=== PATIENT | male | born 1970 | race Caucasian/White ===

== ENCOUNTER 2020-03-27 20:47 | Outpatient (CLI) | payer OTHER | END 2020-03-27 20:48 | disposition home or self-care (01) | LOC: COV 20:47 | PROVIDERS: ATTEND Family Medicine | DX: R50.9 Fever, unspecified (principal); R53.83 Other fatigue; R19.7 Diarrhea, unspecified | CPT/HCPCS: 81599 ==

== ENCOUNTER 2020-08-06 19:30 | Outpatient (CLI) | payer OTHER | END 2020-08-06 23:59 | disposition home or self-care (01) | LOC: SC 19:30 | PROVIDERS: ATTEND Nurse Practitioner Family | DX: G47.33 Obstructive sleep apnea (adult) (pediatric) (principal) | CPT/HCPCS: 95806 ==

== ENCOUNTER 2020-08-23 08:18 | Outpatient (CLI) | payer OTHER ==
--- NOTE | 2020-08-23 08:38 | SLEEP CARE CONSULTATION ---
Information from patient questionnaire entered by Glory Howard. I have reviewed and concur with the information entered by Glory Howard. This document represents the service I personally performed and the decisions made by , Sara Escobar ARNP. History of Present Illness Service Date and Time: 08/23/2020817 Initial [place] Sleepiness Scale score: 19 (in 2019) Current [place] Sleepiness Scale score: 16 Additional HPI information: KATE SANDHU returns for follow up and results of the recently performed home sleep study. I explained the pathophysiology behind obstructive sleep apnea. We then spent quite a bit of time discussing different treatment options. For mild obstructive sleep apnea, surgery and oral appliance are alternatives to nasal CPAP therapy but in moderate or severe cases, nasal CPAP is the most effective and reliable treatment. After some discussion, the patient opted to go with the nasal CPAP therapy. Nasal autoCPAP set at 4-15 cmH20 will be ordered with rationale explained. A manual titration study will be ordered if unable to find optimal pressure with office adjustments. I explained how CPAP machine works with sample devices RespirAre You a Human Dreamstation and Adviqo [id number] and what to expect when using the machine. Using CPAP every night in order to get used to it was emphasized. Patient advised to put CPAP mask on before getting into bed so as not to fall asleep without CPAP. To assist acclimation to CPAP use, it could also be used for a short time during day while reading or watching TV. The patient was instructed to call the CPAP supplier to discuss any mechanical problem that may occur. If the mask given is uncomfortable or is difficult to keep on through the night even with adjustment, contact the CPAP supplier as many will replace with another mask style if notif ied before 30 days. If snoring or perceives is not getting enough air or too much air from the machine, notify this office. AASM patient education PAP tips reviewed and given to patient. Patient counseled not drink alcohol less than 4 hours before bedtime as it can increase snoring and apnea. Patient was cautioned about risks of drowsy driving until sleepiness symptoms resolve. Sleep Study - Results Type of Sleep Study: Home sleep study Prior sleep studies: No Polysomnography/Home Sleep Study results: SLEEP TIME AND EFFICIENCY: The sleep study recording began at 10:11:55 PM and ended at 08:41:01 AM. Total recording time was 629.1 minutes. The total sleep time was 586.0 minutes. The sleep efficiency was 93.1 percent. The patient spent 231.8 minutes supine, and spent 354.2 minutes non-supine. The patients own estimate of sleep time was 10.50 hours. RESPIRATORY DATA: The AHI in this report is indexed to sleep time based on actigraphy. The AASM defines this as MARBIN. The AHI on this type 3 Home Sleep Study may understate the AHI determined on a type 1 or 2 study, since EEG is not monitored resulting in the inability to score non-desaturating hypopneas. Based on 4% Calculation: The AHI 4% calculation of 24.7 per hour of recording time was based on a total of 194 scored apneas and 47 scored hypopneas with 4% desaturations. Supine AHI4%: 41.7 per hour. Non-supine AHI4%: 13.6 per hour. Oxygen Summary: Patient's baseline O2 saturation was 94.6 %. The patient spent 46.0 minutes at an oxygen saturation less than 90%, and 1.7 minutes less than 85%. The desaturation index was 23.4 events per hour sleep time. The lowest saturation was 78.3 %. SNORING: The percent of the study time spent snoring was 0.0 %. The Snoring Count was 1 . The Snoring Index was 0.1 . PULSE RATE REVIEW: The mean heart rate was 63 beats per minute. The rate ranged from a low of 39 to a high of 83 beats per minute. DIAGNOSIS CODE: Moderate obstructive sleep apnea G47.33 Moderate desaturations were noted. The respiratory events occurred more frequently during supine sleep. Allergies and Home Medications Drug allergies reviewed: Yes (NKDA) Home medication list reviewed: Yes (no changes) Review of Systems Review of systems same as previous: Yes (no changes) Physical Exam Heart Rate: 65 O2 Saturation: 93 Height: 5 ft 9 in Weight: 204 lb Body Mass Index: 30.1 BMI Classification: Obese Impression and Plan 1. Obstructive Sleep Apnea-Hypopnea Syndrome, moderate, with lowest oxygen saturation of 78.3%. Obviously this is the cause of the patients symptoms of unrefreshed sleep, and excessive daytime sleepiness. Positive pressure therapy could benefit his anxiety and depression. As mentioned above, the patient will be started on nasal autoCPAP therapy with pressure set at 4-15 cmH2O. A manual titration study will be completed if unable to find optimal treatment pressure with office adjustments. Compliance guidelines also reviewed. A copy of compliance guidelines will be given for reference at check out. Because the apnea is more severe supine, I instructed to avoid sleeping supine using pillow positioning until able to start CPAP use. * Nasal auto CPAP therapy, pressure at 4-15 cm H2O. * Attempt to lose weight. * Avoid alcohol consumption near bedtime. * Avoid supine sleep until using CPAP. * The patient is again cautioned about driving until sleepiness completely resolves. * Return one month after CPAP obtained. I will assess response to therapy and compliance at that time. Counseling Topics: Weight loss health impact Visit Type: In Office Time Spent with Patient (minutes): 17 Provider Statement: I spent 100% of the Face to Face Visit with the patient with greater than 50% spent counseling the patient and coordination of care.
== END 2020-08-23 08:19 | disposition home or self-care (01) ==
LOC: SC 08:18
PROVIDERS: ATTEND Nurse Practitioner Family
DX: G47.33 Obstructive sleep apnea (adult) (pediatric) (principal); E66.9 Obesity, unspecified; Z68.30 Body mass index [BMI] 30.0-30.9, adult
CPT/HCPCS: 99212; 99213

== ENCOUNTER 2020-10-25 15:09 | Outpatient (CLI) | payer OTHER ==
--- NOTE | 2020-10-25 14:56 | SLEEP CARE CONSULTATION ---
Information from patient questionnaire entered by Rohit Krishnamurthy. I have reviewed and concur with the information entered by Rohit Krishnamurthy. This document represents the service I personally performed and the decisions made by , Sara Escobar ARNP. History of Present Illness Service Date and Time: 10/25/2020 1440 Previous diagnosis: Moderate, Obstructive Sleep Apnea-Hypopnea Syndrome AHI: 24.7 Reason for follow up: first compliance Equipment type: CPAP Equipment obtained from: Sara (got initial supplies) Mask style: Nasal Mask brand: Resmed Backup mask available: No (keep mask when replaced) Last cushion change: 6 weeks Prior sleep studies: No Year and Where: 2019 [facility] Type of Sleep Study: Home sleep study HPI additional information: KATE SANDHU was diagnosed to have moderate, AHI 24.7, obstructive sleep apnea- hypopnea syndrome and returns via Telehealth visit today for CPAP therapy first compliance follow-up. Sleep Study - Results Type of Sleep Study: Home sleep study Prior sleep studies: No CPAP Compliance Data - Data Reviewed with Patient Average duration of nightly device use: 8 h 6 min Compliance rate %: 93 Current pressure setting (cmH2O): 4-15 (median 8.1, 95% 11.1 and max 12.7) Average residual AHI: 4.3 Subjective Patient concerns: reports: mask discomfort (some moving around), nasal congestion. denies: aerophagia, air blowing in eyes, mask leak noise, condensation in mask/hose, dry mouth, nose, throat, epistaxis, other Observed to snore while using device: No (only a few times) Current pressure setting perceived as: comfortable On therapy, patient: reports: sleeping better, awakening more refreshed, being more awake and alert during the day, more rested overall. denies: drowsiness while driving Initial [place] Sleepiness Scale score: 19 (in 2020) Current [place] Sleepiness Scale score: 8 Allergies and Home Medications Drug allergies reviewed: Yes (NKDA) Home medication list reviewed: Yes (no changes) Review of Systems Review of systems same as previous: Yes (no changes) Physical Exam Vital signs obtained and entered by: Telehealth visit due to Covid pandemic Height: 5 ft 9 in Weight change since last visit: lost 5 pounds Impression and Plan 1. Obstructive Sleep Apnea-Hypopnea Syndrome, moderate, with good treatment compliance and fair apnea control. On CPAP therapy, the patient has better sleep quality and is more rested overall. He thinks the nasal cushion is okay but move around easily when he changes position. He would like to try the nasal pillows mask to see if he has less dislodging of the mask. I will write a script for him to try this mask. I will adjust his pressure to reflect the pressures he has been using to 9-13 cm H2O. He will follow up in 1-2 months. Patient's apnea se verity and rationale for treatment to reduce apnea, improve sleep quality and reduce cardiovascular and cerebrovascular events was reviewed. I also reviewed the benefit of consistent device use of CPAP for his depression/anxiety. * Change autoCPAP pressure to 9-13 cmH2O * Notify me if snoring with mask or feeling that the pressure is too much or too little * Attempt to lose weight * Call this office if any problems using CPAP * Return for follow up in 1-2 months, or sooner if concerns arise Counseling Topics: Spare mask, Weight loss health impact Visit Type: Telehealth Video Video Type: Jesenia Patient Location: Home Location of Provider: Office Patient agrees and consents to this telehealth visit type: Yes Patient agrees to have their insurance billed: Yes Time Spent with Patient (minutes): 16 Provider Statement: I spent 100% of the Telehealth Video Call with the patient with greater than 50% spent counseling the patient and coordination of care.
== END 2020-10-25 15:10 | disposition home or self-care (01) ==
LOC: SC 15:09
PROVIDERS: ATTEND Nurse Practitioner Family
DX: G47.33 Obstructive sleep apnea (adult) (pediatric) (principal)

== ENCOUNTER 2020-11-16 20:05 | Outpatient (CLI) | payer BC ==
--- OUTSIDE RECORDS SUMMARY | 2020-11-22 01:22 | EXTERNAL MEDICAL SUMMARY RPT | Continuity of Care Document ---
:1970 Demographics Phone Unavailable Preferred Language Dominican Marital Status Unknown Latter-Day Affiliation Unknown Race Unknown Ethnic Group Unknown Author Organization Welcome Address [address] [place] [address] Phone Care Team Providers Name Role Phone Scheidt Unavailable Unavailable DO Unavailable Unavailable Scooter Unavailable Unavailable Problems date description facility 2014-07-15 07:45 PAIN IN LIMB [facility] 2014-07-15 07:45 SWELLING OF LIMB [facility] 2015-01-04 10:00 ACUTE BRONCHITIS [facility] 2015-01-04 10:33 FEVER, UNSPECIFIED [facility] 2015-01-04 10:33 COUGH [facility] 2015-09-25 16:18 CHONDROMALACIA PATELLAE, RIGHT [facility] 2015-09-25 16:18 EFFUSION, RIGHT KNEE [facility] 2015-09-25 16:18 SPRAIN OF UNSPECIFIED SITE OF [facility] RIGHT KNEE, INITIAL ENCOUNTER 2020-07-07 09:03 OBESITY, UNSPECIFIED [facility] 2020-07-07 09:03 ATTENTION-DEFICIT HYPERACTIVITY [facility] DISORDER, UNSPECIFIED TYPE 2020-07-07 09:03 HYPERSOMNIA, UNSPECIFIED [facility] 2020-07-07 09:03 OTHER SLEEP DISORDERS [facility] 2020-07-07 09:03 APNEA, NOT ELSEWHERE CLASSIFIED [facility] 2020-07-07 09:03 SNORING [facility] 2020-07-07 09:03 BODY MASS INDEX (BMI) [facility] 30.0-30.9, ADULT 2020-08-06 19:30 OBSTRUCTIVE SLEEP APNEA (ADULT) [facility] (PEDIATRIC) 2020-08-23 08:18 OBESITY, UNSPECIFIED [facility] 2020-08-23 08:18 OBSTRUCTIVE SLEEP APNEA (ADULT) [facility] (PEDIATRIC) 2020-08-23 08:18 BODY MASS INDEX [BMI]30.0-30.9, [facility] ADULT 2020-09-27 00:00:00 Obstructive sleep apnea (adult) [facility] (pediatric) [facility] 2020-09-27 00:00:00 Obstructive sleep apnea [facility] syndrome [facility] Allergies date description facility ADHESIVE \T\ TAPE [facility] ERYTHROMYCIN [facility] HYDROCODONE [facility] MORPHINE [facility] PSEUDOEPHEDRINE [facility] [id number] [facility] PENICILLINS [facility] GLUTEN [facility] ERYTHROMYCIN [facility] LATEX [facility] LOSARTAN [facility] PENICILLINS [facility] NO KNOWN ALLERGIES [facility] LATEX [facility] SWEET POTATO [facility] WHEAT [facility] ASPIRIN [facility] No Known Drug Allergies [facility] NO ALLERGY INFORMATION AVAILABLE [facility] LACTOSE [facility] WHEAT [facility] TRAMADOL [facility] Results test status date ordered by attending specimen carlos e null F 2020-11-16 LANGNetta BENITES 11-16 16:41:00 12:40:00 facility observation status value reference units lab abnor mal line notes range code [facility] F NEGATIVE unknown See [facility] s eparate report - Report scanned to Patient' s EMR. Testing performe d at [facility] test status date ordered by attending specimen carlos e T unknown 2020-11-16 unknown unknown unknown 00:00:00 COVID-19_REFEREN unknown 2020-11-16 unknown unknown unkno wn CE_TEST 00:00:00 _2019NCoV_COVID- unknown 2020-11-16 unknown unknown unkno wn 19_Lab_Test_Resul 00:00:00 t_Text_ facility observation status value reference units lab abnor mal line range code notes [facility] T unknown NEGATIVE unknown COVI unkn own unknown Primary Care D-19 [facility] COVID-19_REF unknown NEGATIVE unknown COVI unknown unknown Primary Care ERENCE_TEST D19.R [facility] EF [facility] _2019NCoV_CO unknown NEGATIVE unknown _665 unknown unknown Primary Care VID-19_Lab_Te [address] [facility] st_Result_Tex t_ Social History date description facility [id number]
== END 2020-11-16 20:06 | disposition home or self-care (01) ==
LOC: COV 20:05
PROVIDERS: ATTEND Family Medicine
DX: R50.9 Fever, unspecified (principal); M79.10 Myalgia, unspecified site; R53.83 Other fatigue; R19.7 Diarrhea, unspecified; Z20.822 Contact with and (suspected) exposure to COVID-19

== ENCOUNTER 2022-07-09 17:07 | Outpatient (CLI) | payer BC | END 2022-07-09 23:59 | disposition home or self-care (01) | LOC: LAB.N 17:07 | PROVIDERS: ATTEND Nurse Practitioner Family | DX: F90.9 Attention-deficit hyperactivity disorder, unspecified type (principal); Z79.899 Other long term (current) drug therapy | CPT/HCPCS: 80324; 81599 ==

== ENCOUNTER 2022-11-04 12:07 | Outpatient (CLI) | payer BC ==
[2022-11-04 12:45] LABS: ALBUMIN 4.1 g/dL (3.2-5.5); ALBUMIN/GLOBULIN RATIO 1.4 (1.0-2.2); ALKALINE PHOSPHATASE 70 IU/L (42-121); ALT ALANINE AMINOTRANSFERASE 24 IU/L (10-60); AST ASPARTATE AMINOTRANSFERASE 23 IU/L (10-42); BUN - BLOOD UREA NITROGEN 10 mg/dL (6-20); CALCIUM 8.7 mg/dL (8.5-10.3); CARBON DIOXIDE - CO2 30 mmol/L (21-32); CHLORIDE 99 mmol/L (101-111); CHOL/HDL RATIO 4.7 (<5.0); CHOLESTEROL 208 mg/dL; GFR - MDRD 78 (>89); GLUCOSE 115 mg/dL (70-100); HDL CHOLESTEROL 44 mg/dL; LDL CHOLESTEROL,CALCULATED 143 mg/dL; LDL/HDL RATIO 3.3 (<3.6); POTASSIUM 4.1 mmol/L (3.5-5.0); SODIUM 136 mmol/L (135-145); TOTAL PROTEIN 7.1 g/dL (6.7-8.2); TRIGLYCERIDES 107 mg/dL; VLDL CHOLESTEROL 21 mg/dL
== END 2022-11-04 12:08 | disposition home or self-care (01) ==
LOC: LAB 12:07
PROVIDERS: ATTEND Nurse Practitioner Family
DX: E78.5 Hyperlipidemia, unspecified (principal); F90.9 Attention-deficit hyperactivity disorder, unspecified type; Z79.899 Other long term (current) drug therapy
CPT/HCPCS: 36415; 80053; 80061; 83721

== ENCOUNTER 2023-01-09 15:31 | Outpatient (CLI) | payer OTHER ==
--- NOTE | 2023-01-09 16:55 | MRI Report ---
PROCEDURE: ANKLE WO - LT INDICATIONS: ATFL TEAR LT, OCD LT TECHNIQUE: Noncontrast sagittal T1 spin echo and T2 fast spin echo with fat saturation, axial proton density fas t spin echo and T2 fast spin echo with fat saturation, coronal T1 spin echo and T2 fast spin echo wit h fat saturation through the ankle/hindfoot. COMPARISON: Ankle radiograph dated 03/20/2017. FINDINGS: Image quality: Excellent. Bones and joints: No bone marrow contusions or fractures. No hindfoot coalitions. No osteochondral injuries of the talar dome. Small to moderate amount of tibiotalar joint effusion is seen, no gross loose bodies. Medial structures: The posterior tibialis tendon is thickened at the level of distal talus and johanna avicular joint. The flexor digitorum longus, and flexor hallucis longus tendons are intact. The post erior tibial neurovascular bundle appears normal within the tarsal tunnel, without extrinsic mass eff ect. The deep layer (anterior and posterior tibiotalar ligaments) and superficial layer (tibionavicu lar, tibiospring, and tibiocalcaneal ligaments) of the deltoid ligament appear normal. The spring li gament components (superomedial calcaneonavicular, medioplantar oblique calcaneonavicular, and infero plantar longitudinal ligaments) are intact. Lateral structures: There is suggestion of moderate to high-grade partial-thickness tear involving an terior talofibular ligament near its tibial insertion. The calcaneofibular, and posterior talofibular ligaments appear are mildly thickened with low-grade intrasubstance T2 hyperintense signal. More sup eriorly, the anterior and posterior tibiofibular ligaments appear normal, as is the intermalleolar li gament. The tibiofibular syndesmosis is normal in width at 2 mm or less. The peroneus brevis tendon is intact. Thickened peroneus longus tendon is seen at the level of mid to distal calcaneus extending to calcaneocuboid joint. Adjacent bony peroneal tubercle and retrotrochlear prominence are normal in size. The sinus tarsi demonstrates normal fatty signal, without edema, fibrosis, or cyst formation. Visualized sinus tarsi components (cervical ligament, interosseous talocalcaneal ligament, roots of the inferior extensor retinaculum) appear normal. Anterior structures: The tibialis anterior, extensor hallucis longus, and extensor digitorum longus tendons appear intact. Dorsal talonavicular ligament appears thickened. Posterior and plantar structures: Achilles tendon is intact. Medial and lateral bands of the planta r fascia are of normal thickness. No abductor digiti quinti muscle atrophy to suggest Sal neuropa thy. IMPRESSION: 1. No marrow edema. No fracture or dislocation. No evidence of osteochondral injuries of talar dome. Small to moderate tibiotalar joint effusion, no gross loose bodies. 2. Moderate to high-grade partial thickness tear involving medial portion of anterior talofibular lig ament near its tibial insertion. Low-grade sprain/intrasubstance partial thickness tear involving pos terior talofibular ligament and calcaneofibular ligament. 3. Tendinosis involving posterior tibialis tendon at the level of talonavicular joint. 4. Tendinosis also seen involving peroneus longus tendon as above. 5. Low-grade sprain involving dorsal talonavicular ligament. Reviewed by: Artemio Arrieta MD on 01/09/2023 4:54 PM PST Approved by: Artemio Arrieta MD on 01/09/2023 4:54 PM PST Station ID: [id number]
== END 2023-01-09 15:32 | disposition home or self-care (01) ==
LOC: DI 15:31
PROVIDERS: ATTEND Podiatrist Foot & Ankle Surgery
DX: S93.492A Sprain of other ligament of left ankle, initial encounter (principal); M93.272 Osteochondritis dissecans, left ankle and joints of left foot; M24.272 Disorder of ligament, left ankle; M25.472 Effusion, left ankle; S93.412A Sprain of calcaneofibular ligament of left ankle, initial encounter